=== PATIENT | female | born 1980 | race African-American/Black ===

== ENCOUNTER 2017-12-28 17:57 | Observation (INO) ==
[2017-12-28] MEDS ORDERED: *HR* FentaNYL (PF) 100 MCG/2 ML VIAL IVP ONE ×3 (18:13→20:57)
[2017-12-28] MEDS ORDERED: *HR* Promethazine 25 MG/ML VIAL IVP ONE ×2 (18:13→20:57)
--- NOTE | 2017-12-28 18:17 | Emergency Department Note ---
Disposition Clinical Impression: Chest pain Qualifiers: Chest pain type: unspecified Qualified Code(s): R07.9 - Chest pain, unspecified Disposition: Admitted As Inpatient Condition: Good Referrals: NONE,PCP [Primary Care Provider] - Forms: ED Satisfaction Letter Time of Disposition: 20:53 Chest Pain HPI - General Chief Complaint: ED Chest Pain Stated Complaint: CP & RAHEEL Time Seen by Provider: 12/28/17 18:00 Source: patient Mode of arrival: ambulatory Limitations: no limitations Vital Signs Reviewed: Yes Nursing Notes Reviewed: Yes - History of Present Illness HPI Narrative: 37-year-old with history of sickle cell disease comes in complaining of chest pain. She states she had a heart attack at age 26. She takes urea for her sickle cell. She just moved here from [place]. She does not have a assistant executive housekeeper or solar applications development engineer. 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 Duration: constant Onset: during rest Pain Location: left chest Severity: moderate Severity scale (1-10): 8 Quality: tightness, aching Pain Radiation: none Improves with: nothing Worsens with: nothing Associated symptoms: Reports: nausea, vomiting Treatments prior to arrival chest pain: none - Related Data Home Medications Medication Instructions Recorded Confirmed Hydroxyurea [Hydrea] 500 mg PO DAILY 11/20/15 12/28/17 Acetaminophen [Tylenol Arthritis] 650 mg PO BID PRN 12/28/17 12/28/17 Brexpiprazole [Rexulti] 1 mg PO DAILY 12/28/17 12/28/17 Buspirone HCl [Buspar] 10 mg PO BID PRN 12/28/17 12/28/17 HydrOXYzine Pamoate [Vistaril] 50 mg PO TID PRN 12/28/17 12/28/17 [place] Carbonate 300 mg PO BID 12/28/17 12/28/17 Allergies Allergy/AdvReac Type Severity Reaction Status Date / Time ketorolac [From Toradol] Allergy Swelling Verified 12/28/17 18:00 of Lip/Tongue/Throat metoclopramide [From Reglan] Allergy Swelling Verified 12/28/17 18:00 of Lip/Tongue/Throat ondansetron Allergy Swelling Verified 12/28/17 18:00 [From Zofran (as of hydrochloride)] Lip/Tongue/Throat All systems ED: reviewed and negative except as stated. Constitutional: Denies: fever, chills, weakness, weight change Eyes: Denies: eye pain, eye discharge, vision change ENT ED: Denies: ear pain, throat pain, dental pain, hearing loss, epistaxis, congestion, dysphagia Cardiovascular: Reports: chest pain. Denies: palpitations, dyspnea on exertion , edema, syncope Respiratory: Denies: cough, dyspnea, wheezes, hemoptysis, stridor Gastrointestinal: Reports: nausea, vomiting. Denies: abdominal pain, diarrhea, constipation, hematemesis, melena, hematochezia Genitourinary: Denies: dysuria, frequency, hematuria, discharge Musculoskeletal: Denies: back pain, neck pain, arthralgia, myalgia Integumentary: Denies: rash, abrasion, lesions Neurological: Denies: headache, weakness, numbness, paresthesias, confusion, abnormal gait, vertigo Psychiatric: Denies: anxiety, depression, suicidal thoughts, homicidal thoughts , auditory hallucinations, visual hallucinations Endocrine: Denies: fatigue Hematological/Lymphatic: Denies: easy bleeding, easy bruising Allergic/Immunologic: Denies: facial swelling, urticaria Chest Pain PMH - Past Medical History Medical history: Reports: asthma, myocardial infarction, seizures, other Psychiatric history: Reports: anxiety, ADHD, bipolar, depression [employer] history: Reports: no [employer] history - Social History Smoking Status: Current every day smoker Alcohol use: Reports: rarely Drug use: Reports: marijuana Physical Exam - General Limitations: no limitations General appearance: alert, in no apparent distress - Head Head exam: atraumatic, normocephalic, normal inspection - Eye Eye exam: Present: normal appearance, PERRL, EOMI - ENT ENT exam: normal exam, normal oropharynx, mucous membranes moist - Neck Neck exam: Present: normal inspection, full ROM, trachea midline - Chest Chest inspection: Present: normal inspection, symmetric chest wall rise - Respiratory Respiratory exam: Present: normal lung sounds bilaterally - Cardiovascular Cardiovascular exam: Present: regular rate, normal rhythm, normal heart sounds - Abdominal Exam Abdominal exam: Present: soft, Non-Tender. Absent: tenderness, distention, guarding, rebound, rigidity - Extremities Exam Extremities exam: Present: normal inspection, full ROM. Absent: tenderness, pedal edema - Expanded Lower Extremity Exam Neurovascular/Tendon exam: Absent: motor deficit, sensory deficit, tendon deficit - Back Exam Back exam: Present: normal inspection, full ROM. Absent: tenderness - Neurological Exam Neurological exam: Present: alert, oriented X3 - Psychiatric Psychiatric exam: Present: normal affect, normal mood - Skin Skin exam: Present: warm, dry, intact, normal color Course - Reevaluation(s) Reevaluation #1: 37-year-old with a history of sickle cell disease who comes in complaining chest pain with previous history of NC. Workup EKG was negative chest x-ray negative troponin was negative all admit for rule out. Time: 20:53 - Consultations Consultation #1: Discussed with , admit. Time: 20:56 Vital Signs Temperature 98.4 F 12/28/17 17:57 Pulse Rate 95 12/28/17 17:57 Respiratory Rate 18 12/28/17 17:57 Blood Pressure 127/90 12/28/17 17:57 O2 Sat by Pulse Oximetry 98 12/28/17 17:57 Temperature 98.4 F 12/28/17 17:57 Pulse Rate 77 12/28/17 19:58 Respiratory Rate 16 12/28/17 19:58 Blood Pressure 114/83 12/28/17 19:58 O2 Sat by Pulse Oximetry 98 12/28/17 19:58 Oxygen Delivery Oxygen Delivery Room Air Chest Pain - Lab Data Result diagrams: 12/28/17 19:20 12/28/17 19:20 Lab Results 12/28/17 12/28/17 12/28/17 Range/Units 19:20 19:20 19:20 WBC 6.4 (4.3-11.1) K/mcL RBC 3.70 L (3.82-4.97) M/mcL Hgb 11.8 (11.5-15.4) g/dL Hct 35.8 (35.3-44.9) % MCV 96.8 (83.0-100.0) fL MCH 31.9 (28.0-33.3) pg MCHC 33.0 (31.6-35.5) g/dL RDW 12.7 (11.5-14.5) % Plt Count 210 (140-400) K/mcL MPV 10.5 (9.4-12.4) fL Immature Gran % 0.2 (0-4) % Seg Neutrophils % 66.6 % Lymphocytes % 23.0 % Monocytes % 5.2 % Eosinophils % 4.5 % Basophils % 0.5 % Neutrophils # 4.3 (1.6-8.9) K/mcL Lymphocytes # 1.5 (0.6-4.6) K/mcL Monocytes # 0.3 (0.0-1.3) K/mcL Eosinophils # 0.3 (0.0-0.6) K/mcL Basophils # 0.0 (0.0-0.2) K/mcL PT 10.5 (9.4-12.1) Seconds INR 1.0 APTT 30.4 (26.0-36.0) Seconds Sodium 138 (136-145) mEq/L Potassium 3.8 (3.5-5.1) mEq/L Chloride 109 H (98-107) mEq/L Carbon Dioxide 23 (23-29) mEq/L BUN 12 (6-20) mg/dL Creatinine 0.80 (0.60-1.20) mg/dL Est GFR ( Amer) > 60 (> 60) Est GFR (Non-Af Amer) > 60 (> 60) BUN/Creatinine Ratio 15 (6-26) Glucose 94 (70-105) mg/dL Calculated Osmolality 286 (280-300) Calcium 9.0 (8.6-10.3) mg/dL Troponin I < 0.03 (< 0.04) ng/mL - EKG Data EKG attestation: Yes I reviewed and interpreted this EKG. EKG shows normal: sinus rhythm Rate: normal Rhythm: NSR [place]/QRS: normal Interpretation: no acute changes
[2017-12-28] MEDS: 0.9 % Sodium Chloride 1,000 ML IVC SCH (19:43)
[2017-12-28 19:55] LABS: Basophils % 0.5 %; Eosinophils # 0.3 K/mcL (0.0-0.6); Eosinophils % 4.5 %; Hematocrit 35.8 % (35.3-44.9); Hemoglobin 11.8 g/dL (11.5-15.4); Immature Granulocytes % 0.2 % (0-4); Lymphocytes # 1.5 K/mcL (0.6-4.6); Mean Corpuscular Hemoglobin 31.9 pg (28.0-33.3); Mean Corpuscular Volume 96.8 fL (83.0-100.0); Mean Platelet Volume 10.5 fL (9.4-12.4); Monocytes # 0.3 K/mcL (0.0-1.3); Monocytes % 5.2 %; Neutrophils # 4.3 K/mcL (1.6-8.9); Platelet Count 210 K/mcL (140-400); Red Cell Distribution Width 12.7 % (11.5-14.5); Segmented Neutrophils % 66.6 %
[2017-12-28 20:00] LABS: Prothrombin Time 10.5 Seconds (9.4-12.1)
[2017-12-28 20:03] LABS: Activated Partial Thrombo Time 30.4 Seconds (26.0-36.0)
[2017-12-28 20:11] LABS: Troponin I < 0.03 ng/mL (< 0.04)
[2017-12-28 20:12] LABS: BUN/Creatinine Ratio 15 (6-26); Blood Urea Nitrogen 12 mg/dL (6-20); Carbon Dioxide 23 mEq/L (23-29); Chloride 109 mEq/L (98-107); Glucose 94 mg/dL (70-105); Osmolality,Calculated 286 (280-300); Potassium 3.8 mEq/L (3.5-5.1); Sodium 138 mEq/L (136-145); eGFR For African Americans > 60 (> 60); eGFR For Non-African Americans > 60 (> 60)
[2017-12-28] MEDS ORDERED: Naloxone 0.4 MG/ML INJ IVP PRN (23:16)
[2017-12-28] MEDS ORDERED: Acetaminophen 325 MG TABLET PO PRN (23:16)
[2017-12-28] MEDS ORDERED: *HR* HYDROcodone/Acet 5/325 mg TABLET PO PRN (23:16)
[2017-12-29] MEDS: *HR* OxyCODONE Immed Rel 5 MG TABLET PO PRN ×2 (01:08→08:28)
[2017-12-29] MEDS: hydrOXYzine pamoate 25 MG CAPSULE PO PRN ×2 (01:08→05:29)
[2017-12-29] MEDS: *HR* Promethazine 25 MG/ML VIAL IVP PRN ×2 (01:08→08:29)
--- NOTE | 2017-12-29 02:42 | Internal Med History&Physical ---
Date of Encounter: 12/28/17 Time of Encounter: 21:00 Internal Medicine - H&P: HPI Chief complaint: Chest pain Admitted From: Home Plans for Post Hospital Care: Home History of present illness: Ms. Gutierrez is a 37 year old female present to ER for chest pain. Past medical Street is significant for sickle cell disease. Patient said she started to have left-sided chest pain since 3 days ago. The pain located on left chest, under left breast, sharp, intermittent, related to deep breath, radiated to left arm. Patient also has nausea and vomited 5 times , the vomiting were yellowish and greenish fluid, no blood in it. Patient had diarrhea 2 days ago but no diarrhea right now. Patient denies recent travel, history of DVT or PE, or OCP use. In the emergency room, chest x-ray and EKG unremarkable. Patient was admitted for further management. Past Med Surg Social Fam HX - Past Medical History Medical history: asthma, myocardial infarction, seizures, other Psychiatric history: anxiety, ADHD, bipolar, depression - Social History Smoking Status: Current every day smoker Packs per day: 0.5 Smokeless Tobacco Status: No Alcohol use: rarely Drug use: marijuana - Family History Mother Living Status: Still Living Hx Family Cardiac Disorders: Yes (heart disease) Father Living Status: Age at : 34 Hx Family Respiratory Disorders: Yes (black lung dx) Internal Medicine - H&P: Meds Hydroxyurea [Hydrea] 500 mg PO DAILY 11/20/15 [History] Acetaminophen [Tylenol Arthritis] 650 mg PO BID PRN 12/28/17 [History] Brexpiprazole [Rexulti] 1 mg PO DAILY 12/28/17 [History] Buspirone HCl [Buspar] 10 mg PO BID PRN 12/28/17 [History] HydrOXYzine Pamoate [Vistaril] 50 mg PO TID PRN 12/28/17 [History] [place] Carbonate 300 mg PO BID 12/28/17 [History] 3 Allergy/AdvReac Type Severity Reaction Status Date / Time ketorolac [From Toradol] Allergy Swelling Verified 12/28/17 18:00 of Lip/Tongue/Throat metoclopramide [From Reglan] Allergy Swelling Verified 12/28/17 18:00 of Lip/Tongue/Throat ondansetron Allergy Swelling Verified 12/28/17 18:00 [From Zofran (as of hydrochloride)] Lip/Tongue/Throat All Systems PM: A 10-system review of systems was performed and is negative for pertinent findings except as documented above in the HPI. - Constitutional Vitals: Temp Pulse Resp BP Pulse Ox 99.0 F 88 18 122/69 99 12/29/17 00:43 12/29/17 00:43 12/29/17 00:43 12/29/17 00:43 12/29/17 00:43 General appearance: Present: A&O X 3, no acute distress, answers questions appropriately - Head Head exam: Present: atraumatic, normocephalic - Eye Eye exam: Present: PERRL, conjuntiva pink, sclera anicteric Pupils: Present: PERRL - Neck Neck exam general surgery: Present: supple, trachea midline. Absent: lymphadenopathy - Respiratory Respiratory exam: Present: CTAB. Absent: accessory muscle use, rales, rhonchi, wheezes - Cardiovascular Cardiovascular exam: Present: RRR, +S1, +S2. Absent: diastolic murmur, gallop, rubs, systolic murmur - GI/Abdominal GI/Abdominal exam: Present: normal bowel sounds, soft, no peritoneal signs. Absent: distended, tenderness - Extremities Exam Extremities exam: Present: warm, radial pulses palpable and symmetrical. Absent : calf tenderness, cyanotic, pedal edema - Neurological Exam Neurological exam: Present: CN II-XII intact, oriented X3, no focal deficits. Absent: pronater drift, facial droop, speech deficit - Skin Skin exam: Present: dry, intact Internal Med - H&P Results - Labs CBC & Chem 7: 12/28/17 19:20 12/28/17 19:20 - Assessment and plan (1) Sickle cell disease Current Visit: Yes Status: Acute Assessment and plan: Patient has history of sickle cell disease. Has acute onset chest pain with recent nausea vomiting diarrhea. Need to consider sickle cell crisis. No chest x-ray signs of acute chest syndrome - Place patient on hydration, oxygen, and pain medication - Continue home medication hydroxyurea - Closely monitor patient. Qualifiers: Sickle-cell associated disorders: with unspecified crisis Qualified Code(s) : D57.00 - Hb-SS disease with crisis, unspecified; D57.0 - Hb-SS disease with crisis (2) DVT prophylaxis Current Visit: Yes Status: Acute Assessment and plan: Patient is young and ambulating well. Will not place anticoagulation at this point. (3) Chest pain Current Visit: Yes Status: Acute Assessment and plan: Patient has sharp chest pain. Intermittent. Consider sickle cell crisis. But need to rule out ACS or PE. - Place patient on continuous cardiac monitoring - Track 3 sets of troponin - Patient has no recent travel, no leg swelling or pain, no tachycardia or desaturation, no history of PE or DVT, no OCP use, PE is less likely. However, she reports family history of "clotting disease", her chest pain has some pleural pain future (worsening on deep breath). Will check d-dimer. If negative, will not place further tests. Qualifiers: Chest pain type: unspecified Qualified Code(s): R07.9 - Chest pain, unspecified - Time Spent With Patient Total time spent is greater than 50% in coordination of care (as documented) at patient's floor/unit and/or counseling patient: 40 minutes Greater than 35 minutes
[2017-12-29] MEDS ORDERED: (Brexpiprazole [Rexulti] 1 MG) PO SCH (09:00)
[2017-12-29] MEDS ORDERED: Hydroxyurea 500 MG CAPSULE PO SCH (09:00)
[2017-12-29] MEDS ORDERED: Lithium Carbonate 300 MG CAPSULE PO SCH (09:00)
[2017-12-29] MEDS: 0.9 % Sodium Chloride 1,000 ML IVC SCH (11:06)
[2017-12-29 11:14] VITALS: BP 116/72
--- NOTE | 2017-12-29 11:59 | Discharge Summary ---
<Mariaelena Moore - Last Filed: 12/29/17 20:33> - NOTES TO OUTPATIENT PROVIDER Notes to Outpatient Provider: Pt was admitted for chest pain, workup was not completed. Pt refused labs and testing. She was given prescriptions for pain medication and was discharged in stable condition. Date of Encounter: 12/29/17 Time of Encounter: 09:20 - Discharge Diagnosis (1) Chest pain Priority: Primary Status: Acute Assessment and Plan: Pt reported sharp, intermittent left chest pain below her left breast. I was attempting to rule out ACS/PE/Acute chest syndrome due to pt's history of Sickle Cell Anemia. No workup was completed. Pt would not allow lab to draw labs, she would not discuss echo, stress test. Pt had one troponin drawn in the ER that was WNL. EKG without ischemic changes. Chest xray negative for acute disease. During exam, pt was not having chest pain. No pain with palpation, inspiration, or movement. Pt was ambulating throughout the department for most of the morning without difficulty. Qualifiers: Chest pain type: unspecified Qualified Code(s): R07.9 - Chest pain, unspecified (2) Sickle cell disease Priority: Secondary Status: Chronic Assessment and Plan: Per pt's own history. Pt presents with chest pain. Labs WNL. Hgb 11.8. Patient was initially treated with pain medication, IV fluids, oxygen. Follow with PCP. Qualifiers: Sickle-cell associated disorders: with unspecified crisis Qualified Code(s) : D57.00 - Hb-SS disease with crisis, unspecified; D57.0 - Hb-SS disease with crisis (3) DVT prophylaxis Priority: Secondary Status: Acute Assessment and Plan: Pt is young and has been ambulatory. Hospital course: Ms. Gutierrez is a 37 year old female with past medical history of sickle cell anemia , reported PA at age 26. She presented to the emergency department with chest pain for 3 days. Chest pain was under left breast, sharp, intermittent, patient reported increased with deep inspiration, radiation to left arm. Patient also reports nausea with 5 episodes of bilious vomiting. She was admitted for chest pain to rule out acute chest syndrome, ACS, or PE. She was treated with IV fluids, pain medication, oxygen. Patient declined labs, echocardiogram, stress test. Patient was requesting increased amounts and frequency of pain medication. Another provider was brought on board per her request, it was decided that she would receive another small IV fluid bolus, IV antiemetic, by mouth Benadryl, and would be discharged with oral pain medication to hold her over until she could get to primary care. Patient was able to ambulate around the department without any difficulty. Her labs are all stable and within normal limits, no indications of any kind of anemia or electrolyte imbalance. Patient's vital signs were stable and within normal limits. Physical exam was unremarkable and she had no chest pain. Patient was discharged in stable condition. Discharge discussed with: patient, nurse - Time Spent with Patient Total time spent providing and/or coordinating discharge services: Greater than 30 minutes - Discharge Medications Prescriptions: HYDROcodone/Acet 5/325 mg [[place] 5-325 mg] 1 tab PO Q6H PRN 2 Days #8 tablet PRN Reason: Moderate Pain Home Medications: Hydroxyurea [Hydrea] 500 mg PO DAILY 11/20/15 [History] Acetaminophen [Tylenol Arthritis] 650 mg PO BID PRN 12/28/17 [History] Brexpiprazole [Rexulti] 1 mg PO DAILY 12/28/17 [History] Buspirone HCl [Buspar] 10 mg PO BID PRN 12/28/17 [History] HydrOXYzine Pamoate [Vistaril] 50 mg PO TID PRN 12/28/17 [History] [place] Carbonate 300 mg PO BID 12/28/17 [History] HYDROcodone/Acet 5/325 mg [[place] 5-325 mg] 1 tab PO Q6H PRN 2 Days #8 tablet [Rx] Allergies/Adverse Reactions: 3 Allergy/AdvReac Type Severity Reaction Status Date / Time ketorolac [From Toradol] Allergy Swelling Verified 12/28/17 18:00 of Lip/Tongue/Throat metoclopramide [From Reglan] Allergy Swelling Verified 12/28/17 18:00 of Lip/Tongue/Throat ondansetron Allergy Swelling Verified 12/28/17 18:00 [From Zofran (as of hydrochloride)] Lip/Tongue/Throat Date of admission: 12/28/17 23:45 Primary care physician: PCP NONE Discharging clinician: Mariaelena Moore Anticipated date of discharge: 12/29/17 - Constitutional Vitals: Temp Pulse Resp BP Pulse Ox 99 F 81 15 116/72 99 12/29/17 11:10 12/29/17 11:10 12/29/17 11:10 12/29/17 11:10 12/29/17 11:10 General appearance: Present: A&O X 3, no acute distress, answers questions appropriately. Absent: cooperative, pleasant - Head Head exam: Present: atraumatic, normal inspection, normocephalic - Eye Eye exam: Present: conjuntiva pink, sclera anicteric - Neck Neck exam general surgery: Present: supple, trachea midline. Absent: lymphadenopathy, tenderness - Respiratory Respiratory exam: Present: CTAB. Absent: accessory muscle use, decreased breath sounds, rales, respiratory distress, rhonchi, wheezes - Cardiovascular Cardiovascular exam: Present: RRR, +S1, +S2. Absent: diastolic murmur, gallop, rubs, systolic murmur - GI/Abdominal GI/Abdominal exam: Present: normal bowel sounds, soft. Absent: distended, hepatomegaly, tenderness - Extremities Exam Extremities exam: Present: normal capillary refill, normal inspection, warm, radial pulses palpable and symmetrical. Absent: calf tenderness, cyanotic, pedal edema, tenderness - Neurological Exam Neurological exam: Present: alert, oriented X3, no focal deficits. Absent: altered, facial droop, speech deficit - Skin Skin exam: Present: dry, intact, normal color, warm. Absent: rash - Patient Status Disposition: Home, Self-Care Condition: Good Functional capacity at discharge: independent ambulation Overall status at discharge: patient is back to baseline - Discharge Instructions Follow Up With: NONE,PCP [Primary Care Provider] - Additional Instructions: Follow up with your PCP in the next 7-10 days for a recheck. REturn to the ER as needed for any other problems or concerns, or if your symptoms return to worsen. Return to your normal diet and activities as tolerated. I recommend that you have a cardiac workup in the near future, and do not hesitate to return to the nearest ER if you begin to have problems again. - Diet and Activity Activity: increase activity as tolerated Diet: advance to your usual diet <Godwin Mendoza - Last Filed: 12/30/17 10:05> Date of Encounter: 12/30/17 - Discharge Diagnosis (1) Chest pain Status: Acute Qualifiers: Chest pain type: unspecified Qualified Code(s): R07.9 - Chest pain, unspecified (2) Sickle cell disease Status: Chronic Qualifiers: Sickle-cell associated disorders: with unspecified crisis Qualified Code(s) : D57.00 - Hb-SS disease with crisis, unspecified; D57.0 - Hb-SS disease with crisis (3) DVT prophylaxis Status: Acute Hospital course: Ms. Gutierrez is a 37 year old female - Time Spent with Patient Total time spent providing and/or coordinating discharge services: Date of admission: 12/28/17 23:45 Primary care physician: PCP NONE - Constitutional Vitals: Temp Pulse Resp BP Pulse Ox 99 F 81 15 116/72 99 12/29/17 11:10 12/29/17 11:10 12/29/17 11:10 12/29/17 11:10 12/29/17 11:10 - Attending Attestation LATE ENTRY This patient was seen, examined at PoC created for discharge with COURT OF APPEALS JUDGE on the case. She is a patient with Sickle cell Disease history who was admitted with chest pain and ruled out for ACS. She also had sikc contacts and symptoms of gastritis and diarrhea silverio preceded her coming to the hospital. Her demeanor came across as one of opiate seeking patient based on specifics of drugs/ treatments requested Examwise ,She was in no distress at time of encounter and had mild TTP in epigastric region Since she was on oral meds, we decided to DC her w Rx for gastritis, pain control and follow up w PCP in 2-3 days time
--- NOTE | 2017-12-29 15:59 | Electrocardiograph Report ---
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
--- NOTE | 2017-12-29 20:50 | Event Note ---
Date of Encounter: 12/29/17 Time of Encounter: 12:00 Patient was initially seen by me at 9:20 AM. Patient was unable to focus on any kind of plan for the day or assessment and was only able to continue discussing her need for an increase in pain medication amount and frequency. Ms. Gutierrez was also requesting IV Phenergan and IV Benadryl. When I declined her request she became upset and requested to speak with my "superior". She was ambulating in the hallway most of the morning being disruptive with other patients, families, and nurses. She was upset and even called the switchboard to tell the offset duplicating machine operator that she was not receiving adequate treatment and that nursing was being mean to her. Dr. Mendoza did see patient and reached an agreement with the patient that she would get IV Phenergan, by mouth Benadryl and prescription for 2 days of medication to last her until she can get to primary care. Another 250 mL fluid bolus was also ordered to infuse over 1 hour. It was established that she would be discharged around 12:30. Initially, patient reported to me that she had moved here from [place] to live with her mother. At approximately noon, patient approached me in the hallway into that she will needed to leave right now that her right was here and that she lived in [place] and would take 2 hours to get home and she needed to leave now. Discharge was completed and patient was discharged with [place] 5/325 mg 8 tablets. Apparently, somewhere in this timeframe she approached a addiction social worker and said that she needed a ride to [place] to see her mother in the hospital. Patient left with prescriptions, later was seen in the hallway back on the unit. She was seen going into another patient's room, and that patient's primary nurse investigated why she was back. She told the nurse that she was looking for her found processing specialist. She also told the patient to tell nursing and staff that she was looking for her processing specialist, as well. I was called to the other patient's room by the primary nurse who reported to be that Ms. Gutierrez had brought one of her [place] back to the hospital to give to the patient. Primary nurse notified hospital security/police at the incident, the came to the floor later collected white substance and spoke with me briefly about possible outcomes and that Ms. Gutierrez had been talked to by hospital security/police.
== END 2017-12-29 12:21 | disposition home or self-care (01) ==
LOC: 3BNU 17:57 → EMEROO 17:57 → 3BNU 12-29 00:37
PROVIDERS: ADMIT Internal Medicine; ATTEND Internal Medicine